=== PATIENT | female | born 2000 | race Caucasian/White ===

== ENCOUNTER 2022-11-02 12:56 | Emergency (ER) | payer MEDICAID ==
[~2022-11-02] VITALS: Ht 160 cm; Wt 86.2 kg
--- NOTE | 2022-11-02 13:00 | NUR ---
PT BIBA AWAKE AND ALERT AOX4. NO SOB OR DISTRESS. 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 PT STATES PAIN 04/24. PT DENIES HITTING HER HEAD AND KO. PT DENIES N/V/ PT HAS NO MEDICAL HX. NO BLEEDING OBSERVED.
[2022-11-02 13:04] VITALS: BP_SYST 148
--- NOTE | 2022-11-02 13:05 | NUR ---
MD DR BOO AT BEDSIDE
[2022-11-02] MEDS ORDERED: KETOROLAC TROMETHAMINE 60 MG/2 ML VIAL IM ONE ×2 (13:30→15:45)
--- NOTE | 2022-11-02 14:05 | NUR ---
Urine collected for HCG screen negative result. Notified Radiology.
[2022-11-02] MEDS ORDERED: IBUP-1971 PO (15:46)
[2022-11-02 16:03] VITALS: BP_SYST 125
--- NOTE | 2022-11-02 16:06 | NUR ---
Patient given written and verbal discharge instructions and verbalizes understanding. ER MD DR SANCHEZ discussed with patient the results and treatment provided. Patient in stable condition. ID arm band removed. Rx of MOTRIN given. Patient educated on pain management and to follow up with PMD. Pain Scale 2/10. Opportunity for questions provided and answered. Medication side effect fact sheet provided.
== END 2022-11-02 16:03 | disposition home or self-care (01) ==
LOC: SED 12:56
DX: S63.92XA Sprain of unspecified part of left wrist and hand, initial encounter (principal); S70.02XA Contusion of left hip, initial encounter; Z79.899 Other long term (current) drug therapy; W01.0XXA Fall on same level from slipping, tripping and stumbling without subsequent striking against object, initial encounter; Y93.89 Activity, other specified; Y92.89 Other specified places as the place of occurrence of the external cause; Y99.8 Other external cause status
CPT/HCPCS: 99284; 73030; 73110; 73502; 81025; 29125; 96372; J1885